=== PATIENT | male | born 1980 | race African-American/Black ===

== ENCOUNTER 2018-11-04 16:41 | Emergency (ER) | payer OTHER ==
[~2018-11-04] VITALS: Ht 165.1 cm; Wt 90.3 kg
[2018-11-04 17:28] LABS: PLATELET COUNT 250 K/uL (152-353)
[2018-11-04 17:45] LABS: POTASSIUM 3.5 mmol/L (3.6-5.2); SODIUM 139 mmol/L (136-145)
[2018-11-04 20:45] VITALS: BP 114/62; TEMP 98.1
== END 2018-11-04 20:45 | disposition home or self-care (01) ==
LOC: ED 16:41 → EDSEX 16:41 → ED 20:45
PROVIDERS: Emergency Medicine
DX: R07.89 Other chest pain (principal)
CPT/HCPCS: 80053; 82550; 82553; 84484; 85027; 93005; 99283